=== PATIENT | male | born 2000 | race Caucasian/White ===

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

== ENCOUNTER 2022-11-28 06:53 | Emergency (ER) | payer OTHER ==
[~2022-11-28] VITALS: Ht 175.3 cm; Wt 72.7 kg
[2022-11-28 06:54] VITALS: BP 135/77; TEMP 98.6; O2SAT 100
== END 2022-11-28 08:40 | disposition left against medical advice (07) ==
LOC: M ED 06:53
DX: Z53.21 Procedure and treatment not carried out due to patient leaving prior to being seen by health care provider (principal)

== ENCOUNTER → 2023-04-21 | Outpatient (CLI) | payer OTHER | LOC: M WUC 15:35 | PROVIDERS: ATTEND Registered Nurse | DX: M25.512 Pain in left shoulder (principal) ==